=== PATIENT | female | born 1990 | race Caucasian/White ===

== ENCOUNTER 2019-09-23 11:47 | Emergency (ER) | payer OTHER ==
[~2019-09-23] VITALS: Ht 154.9 cm; Wt 65.8 kg
[2019-09-23 11:56] VITALS: BP 111/71
--- NOTE | 2019-09-23 11:58 | NUR ---
Patient ambulated to bed 2. RN evaluating patient at bedside.
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
[2019-09-23] MEDS ORDERED: SULFAMETH/TRIMETH DS 800/160MG 1 TAB PO ONE (12:25)
[2019-09-23] MEDS ORDERED: PHENAZOPYRIDINE 100 MG TAB PO ONE (12:25)
[2019-09-23 12:33] VITALS: BP 111/71
--- NOTE | 2019-09-23 12:33 | NUR ---
Patient discharged with v/s stable. Written and verbal after care instructions given and explained. Patient alert, oriented and verbalized understanding of instructions. Ambulatory with steady gait. All questions addressed prior to discharge. ID band removed. Patient advised to follow up with PMD. Rx of Bactrim DS 800mg-160mg and Pyridium 100mg given. Patient educated on indication of medication including possible reaction and side effects. Opportunity to ask questions provided and answered.
== END 2019-09-23 12:33 | disposition home or self-care (01) ==
LOC: MED 11:47
DX: N39.0 Urinary tract infection, site not specified (principal)
CPT/HCPCS: 81002; 81025; 99283

== ENCOUNTER 2019-11-04 23:17 | Emergency (ER) | payer OTHER ==
[~2019-11-04] VITALS: Ht 154.9 cm; Wt 65.8 kg
[2019-11-04 23:25] VITALS: BP 132/84
--- NOTE | 2019-11-04 23:28 | NUR ---
to lobby a/w bed ambulatory
--- NOTE | 2019-11-05 00:26 | NUR ---
PT AMBULATED TO BED #10
--- NOTE | 2019-11-05 00:44 | NUR ---
BIB SELF C/O LOWER ABD PAIN/ VOMITING/ CHILLS X3DAYS. PT REPORTS NAUSEA FOR 1 WEEK. NO DIARRHEA, LAST BM WAS TODAY. BOWEL SOUNDS ACTIVE IN ALL QUADRANTS. LAST MENSTRATION: OCT 17. PT HAS NOT BEEN ABLE TO KEEP DOWN ANY FOOD OR DRINK. NO PMH NKA
--- NOTE | 2019-11-05 00:55 | NUR ---
RADIOLOGY TRANSPORTED PT VIA WHEELCHAIR
[2019-11-05 01:39] LABS: APPEARANCE,URINE CLEAR (CLEAR); BILIRUBIN,URINE NEGATIVE (NEGATIVE); BLOOD, URINE TRACE-I (NEGATIVE); COLOR,URINE YELLOW (YELLOW); LEUKOCYTE ESTERASE ,URINE NEGATIVE (NEGATIVE); NITRITE, URINE NEGATIVE (NEGATIVE); UGLUCOSE NEGATIVE (NEGATIVE)
[2019-11-05 01:52] LABS: BASOPHILS % (AUTO) 0.4 % (0.0-2.0); EOSINOPHILS # (AUTO) 0.1 K/uL (0-0.4); EOSINOPHILS % (AUTO) 1.4 % (0.0-4.0); HEMATOCRIT 39.1 % (36-48); HEMOGLOBIN 12.9 g/dL (12.0-16.0); LYMPHOCYTES # (AUTO) 2.5 K/uL (2.5-16.5); LYMPHOCYTES % (AUTO) 24.2 % (20.5-51.1); MEAN CORPUSCULAR HEMOGLOBIN 30 pg (27-31); MEAN CORPUSCULAR HGB CONC 33 g/dL (33-37); MEAN CORPUSCULAR VOLUME 89.8 fL (80-94); MONOCYTES # (AUTO) 0.7 K/uL (0.8-1.0); NEUTROPHILS # (AUTO) 6.9 K/uL (1.8-7.7); PLATELET COUNT (AUTO) 312 K/uL (140-450); RED BLOOD CELL COUNT(AUTO) 4.35 MIL/uL (4.20-5.40); RED CELL DISTRIBUTION WIDTH 13.8 % (11.6-13.7); WHITE BLOOD COUNT (AUTO) 10.4 K/uL (4.8-10.8)
[2019-11-05 01:53] LABS: RBC,URINE 0-5 /HPF (0-5); WBC,URINE 0 /HPF (0-5)
[2019-11-05] MEDS ORDERED: ONDANSETRON 4 MG ODT PO ONE (02:25)
[2019-11-05 02:36] VITALS: BP 128/82
== END 2019-11-05 02:36 | disposition home or self-care (01) ==
LOC: MED 23:17
DX: R10.9 Unspecified abdominal pain (principal); R11.2 Nausea with vomiting, unspecified; Z98.890 Other specified postprocedural states
CPT/HCPCS: 36415; 74018; 81001; 81025; 85025; 99284

== ENCOUNTER 2019-11-23 17:58 | Emergency (ER) | payer MEDICAID, OTHER ==
[~2019-11-23] VITALS: Ht 154.9 cm; Wt 68.5 kg
[2019-11-23 18:02] VITALS: BP 125/78
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
--- NOTE | 2019-11-23 18:54 | NUR ---
PATIENT AMBULATED TO CHAIR D.
--- NOTE | 2019-11-23 19:00 | NUR ---
PT LEFT FOOT IRRIGATED WITH NORMAL SALINE AND CLEANED WITH 4X4 GUAZE PADS
[2019-11-23 19:31] VITALS: BP 131/86
--- NOTE | 2019-11-23 19:31 | NUR ---
Patient discharged with v/s stable. Bleeding controlled. States relief. Written and verbal after care instructions given and explained. Patient alert, oriented and verbalized understanding of instructions. Ambulatory with steady gait. All questions addressed prior to discharge. ID band removed. Patient advised to follow up with PMD. Rx of Ibuprofen given. Patient educated on indication of medication including possible reaction and side effects. Opportunity to ask questions provided and answered.
== END 2019-11-23 19:31 | disposition home or self-care (01) ==
LOC: MED 17:58
DX: S91.312A Laceration without foreign body, left foot, initial encounter (principal); W19.XXXA Unspecified fall, initial encounter; Y93.89 Activity, other specified; Y92.89 Other specified places as the place of occurrence of the external cause; Y99.8 Other external cause status
CPT/HCPCS: 12001; 90471; 90715; 99283

== ENCOUNTER 2019-11-26 16:49 | Emergency (ER) | payer MEDICAID ==
[~2019-11-26] VITALS: Ht 154.9 cm; Wt 68.0 kg
[2019-11-26 17:00] VITALS: BP 116/69
--- NOTE | 2019-11-26 17:03 | NUR ---
to lobby a/w bed ambulatory
--- NOTE | 2019-11-26 17:50 | NUR ---
CALLED PT IN LOBBY, NO ANSWER.
--- NOTE | 2019-11-26 17:55 | NUR ---
called pt sgain, no response.
--- NOTE | 2019-11-26 18:00 | NUR ---
CALLED PT. NO RESPONSE. PT LEFT WITHOUT BEING SEEN.
== END 2019-11-26 17:50 | disposition left against medical advice (07) ==
LOC: MED 16:49
DX: Z48.00 Encounter for change or removal of nonsurgical wound dressing (principal); Z53.21 Procedure and treatment not carried out due to patient leaving prior to being seen by health care provider

== ENCOUNTER 2019-11-27 14:35 | Emergency (ER) | payer MEDICAID ==
[~2019-11-27] VITALS: Ht 157.5 cm; Wt 69.4 kg
[2019-11-27 14:40] VITALS: BP 121/75
--- NOTE | 2019-11-27 14:44 | NUR ---
PT TO BED 9 WITH STEADY GAIT
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
--- NOTE | 2019-11-27 15:04 | NUR ---
BALJEET HAWKINS AT BEDSIDE
--- NOTE | 2019-11-27 15:12 | NUR ---
Patient discharged. Written and verbal after care instructions given and explained REGARDING WOUND CHECK. Patient verbalized understanding. Ambulatory with steady gait. All questions addressed prior to discharge. PT GIVEN EXCUSE FOR WORK THROUGH DEC 02
== END 2019-11-27 15:12 | disposition home or self-care (01) ==
LOC: MED 14:35
DX: S90.812D Abrasion, left foot, subsequent encounter (principal); W19.XXXD Unspecified fall, subsequent encounter
CPT/HCPCS: 99281

== ENCOUNTER 2022-10-19 06:58 | Emergency (ER) | payer OTHER, MEDICAID ==
[~2022-10-19] VITALS: Ht 154.9 cm; Wt 73.0 kg
[2022-10-19 07:03] VITALS: BP 131/86
[2022-10-19] MEDS ORDERED: ACETAMINOPHEN EXTRA STRENGTH 500 MG TAB PO ONE (07:25)
--- NOTE | 2022-10-19 07:49 | NUR ---
Ultrasound at bedside.
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
[2022-10-19] MEDS ORDERED: PREN-500 PO (08:30)
[2022-10-19] MEDS ORDERED: ACET-10509 PO (08:30)
[2022-10-19 08:43] LABS: BILIRUBIN,URINE NEGATIVE (NEGATIVE); BLOOD, URINE TRACE-I (NEGATIVE); COLOR,URINE YELLOW (YELLOW); LEUKOCYTE ESTERASE ,URINE 3+ (NEGATIVE); NITRITE, URINE NEGATIVE (NEGATIVE); UGLUCOSE NEGATIVE (NEGATIVE)
[2022-10-19 08:53] LABS: APPEARANCE,URINE SLIGHTLY HAZY (CLEAR)
[2022-10-19 08:55] LABS: RBC,URINE 0-5 /HPF (0-5); WBC,URINE 20-60 /HPF (0-5)
[2022-10-19] MEDS ORDERED: cephALEXin 500 MG CAP PO ONE (09:00)
[2022-10-19] MEDS ORDERED: CEPH-588 PO (09:03)
--- NOTE | 2022-10-19 09:36 | NUR ---
CALLED [facility] AGAIN, STATED THAT THEY WILL SEND AN OFFICER "NOW" TO SPEAK TO THE PATIENT
--- NOTE | 2022-10-19 09:45 | NUR ---
[place] [facility] AT BEDSIDE
[2022-10-19 09:57] VITALS: BP 113/62
--- NOTE | 2022-10-19 09:57 | NUR ---
Patient discharged with v/s stable. Written and verbal after care instructions ABOUT UTI given and explained. Patient alert, oriented and verbalized understanding of instructions. Ambulatory with steady gait. All questions addressed prior to discharge. ID band removed. Patient advised to follow up with PMD. Rx of KEFLEX given. Patient educated on indication of medication including possible reaction and side effects. Opportunity to ask questions provided and answered.
== END 2022-10-19 09:57 | disposition home or self-care (01) ==
LOC: MED 06:58
DX: O9A.211 Injury, poisoning and certain other consequences of external causes complicating pregnancy, first trimester (principal); O23.41 Unspecified infection of urinary tract in pregnancy, first trimester; S39.91XA Unspecified injury of abdomen, initial encounter; Z79.899 Other long term (current) drug therapy; Z3A.11 11 weeks gestation of pregnancy; Y04.2XXA Assault by strike against or bumped into by another person, initial encounter; Y93.89 Activity, other specified; Y92.89 Other specified places as the place of occurrence of the external cause; Y99.0 Civilian activity done for income or pay
CPT/HCPCS: 76801; 81001; 81025; 87086; 99284; Q0092